=== PATIENT | female | born 1955 | race Caucasian/White ===

== ENCOUNTER → 2018-02-14 17:39 | Outpatient (CLI) | payer OTHER, MEDICAID, SELFPAY ==
--- NOTE | 2018-02-14 17:47 | DI.RAD.S_ITS ---
PROCEDURE: XR HIP W PEL IF DONE RT 2V INDICATIONS: RIGHT HIP PAIN TECHNIQUE: AP pelvis with lateral view(s) of the right hip(s). COMPARISON: [facility], , PELVIS W UNILATERAL HIP LEFT, 06/19/2015, 17:16. FINDINGS: Bones: No fractures or dislocations. Pelvic ring appears intact. No suspicious bony lesions. There is mild bilateral degenerative hip joint space narrowing with minimal subchondral sclerosis. No erosions. Soft tissues: The visualized bowel gas pattern is normal. No suspicious soft tissue calcifications. Trace right calcific tendinitis is noted. IMPRESSION: Stable appearance of mild bilateral hip joint space narrowing suggestive of osteoarthritis. Dictated by: Lillian Hoff M.D. on 02/15/2018 at 16:05 Approved by: Lillian Hoff M.D. on 02/15/2018 at 16:06
== END ==
PROVIDERS: Visit Provider Physician Assistant Medical
DX: M25.551 Pain in right hip (principal); G89.21 Chronic pain due to trauma; Z87.828 Personal history of other (healed) physical injury and trauma
CPT/HCPCS: 73502

== ENCOUNTER → 2018-04-13 13:54 | Outpatient (CLI) | payer OTHER, MEDICAID, SELFPAY ==
--- NOTE | 2018-04-13 | DI.RAD.S_ITS ---
PROCEDURE: XR FOOT RT MIN 3V INDICATIONS: FOOT PAIN TECHNIQUE: 3 views of the foot were acquired. COMPARISON: None. FINDINGS: Bones: No fractures or dislocations. No suspicious bony lesions. There is mild hallux valgus and suggestion of hemorrhage with deformity involving second and third toes. Mild first MTP joint and first through fifth interphalangeal joint osteoarthritic changes also seen. Soft tissues: No tibiotalar joint effusion. Achilles tendon appears normal. IMPRESSION: Mild hallux valgus. Second and third toe hammertoe deformities. Mild forefoot joint osteoarthritis. No fracture or dislocation. Dictated by: Hossein Madden M.D. on 04/13/2018 at 14:37 Approved by: Hossein Madden M.D. on 04/13/2018 at 15:15
== END ==
PROVIDERS: Visit Provider Physician Assistant Medical
DX: M79.671 Pain in right foot (principal); M20.11 Hallux valgus (acquired), right foot; M20.41 Other hammer toe(s) (acquired), right foot; M19.071 Primary osteoarthritis, right ankle and foot
CPT/HCPCS: 73630

== ENCOUNTER → 2019-02-26 17:27 | Outpatient (CLI) | payer SELFPAY ==
[2019-02-26 19:29] LABS: INR 0.9 (0.9-1.3)
[2019-02-26 19:31] LABS: PTT Partial Thromboplastin Tim 34 SECONDS (26.4-36.2)
== END ==
PROVIDERS: PCP Family Medicine; Visit Provider Family Medicine
DX: R23.8 Other skin changes (principal)
CPT/HCPCS: 36415; 85610; 85730

== ENCOUNTER → 2020-03-25 15:26 | Outpatient (CLI) | payer OTHER, MEDICAID, SELFPAY ==
--- NOTE | 2020-03-25 15:29 | DI.MRI.S_ITS ---
PROCEDURE: MR FOREARM LT WO/W CON INDICATIONS: Mass left wrist and forearm TECHNIQUE: Noncontrast coronal T1 spin echo and STIR, sagittal T1 spin echo with fat saturation and STIR, axial T1 spin echo and T2 fast spin echo with fat saturation. After the administration of contrast, axial/sagittal/coronal T1 spin echo with fat saturation through the left forearm . COMPARISON: Outside Film, CR, XR WRIST 3+ VIEWS LEFT, 10/01/2019, 13:45. FINDINGS: Image quality: Excellent. Bones: The visualized bone marrow demonstrates normal signal on all sequences. The overlying cortex appears intact. No abnormal intraosseous enhancement. Soft tissues: 2 fiducial markers are seen, 1 placed on the skin surface of the mid forearm along the radial aspect, 2nd marker is noted along the ulnar aspect of the wrist. In both of these locations, no definite soft tissue mass is seen. There is predominant subcutaneous fat signal intensity without definite or masslike enhancement. Measurements are precluded by the absence of any visible margins. At the mid forearm location, there is mild infiltrative T2 hyperintense signal change although unclear if this is related to field magnetic heterogeneity and failure of fat suppression artifact. At the wrist location, there is prominent enhancement along the ulnar aspect of the carpus which may be synovial and related to inflammatory arthropathy. Dedicated wrist MRI with and without contrast could be performed as clinically necessary. Of note, the comparison radiograph there is blunted appearance of the ulnar styloid. IMPRESSION: In both locations at the mid forearm and wrist, there is predominantly fat signal intensity underlying the fiducial markers which suggests (unencapsulated) lipoma. Recommend clinical correlation and management Prominent enhancement seen along the ulnar aspect of the carpus in the region of the ulnar styloid. This could reflect synovitis related to inflammatory/erosive arthropathy. Please correlate clinically and with laboratory data Dictated by: Charlie Valdez M.D. on 03/25/2020 at 16:52 Approved by: Charlie Valdez M.D. on 03/25/2020 at 17:01
== END ==
PROVIDERS: PCP Physician Assistant; Referring Provider Orthopaedic Surgery; Visit Provider Orthopaedic Surgery
DX: R22.32 Localized swelling, mass and lump, left upper limb (principal)
CPT/HCPCS: 73220; A9579

== ENCOUNTER 2020-08-31 07:28 | Emergency (ER) | payer OTHER, MEDICAID, SELFPAY ==
[2020-08-31] VITALS (7 sets, daily range): BP systolic 98–135; BP diastolic 52–62; PULSE 58–89; RESP 22; TEMP 36.7; O2SAT 93–97; BMI 31.2
--- NOTE | 2020-08-31 07:31 | ED_ITS ---
HPI - General Adult General Chief complaint: Back Pain/Injury Stated complaint: Back spasms Time Seen by Provider: 08/31/20 07:31 Source: patient Mode of arrival: EMS Limitations: no limitations History of Present Illness HPI narrative: Patient is a 65-year-old female who has had lower back pain in the past presents today with pain in her right upper back. She states that it woke her up from sleep approximately 4 hours prior to arrival here in the ER. She does not remember anything that would cause her symptoms to have occurred. She states that it feels like a deep discomfort in her right upper back. It is worse when she takes a deep breath and moves. She is not having any chest discomfort. No fevers. No sick exposures. She stated that she tried some cream over the area this morning without any improvement. She states she also tried some stretching without any improvement. In route here to the you her per EMS she received 2 mg of Zofran and 6 mg of morphine without much improvement. Related Data Previous Rx's Medication Instructions Recorded cyclobenzaprine 10 mg PO TID PRN #14 tab 08/31/20 Allergies Allergy/AdvReac Type Severity Reaction Status Date / Time latex [LATEX] Allergy Unknown Verified 08/31/20 07:39 povidone-iodine Allergy Unknown Verified 08/31/20 07:39 [From BETADINE] soap [From BETADINE] Allergy Unknown Verified 08/31/20 07:39 ENVIRONMENTAL Allergy Intermediate Uncoded 08/31/20 07:39 BEE Allergy Unknown PER Uncoded 08/31/20 07:39 TESTING, HAS EPI PEN SULFA Allergy Unknown RASH Uncoded 08/31/20 07:39 Review of Systems Constitutional Constitutional: Denies fever(s) and Denies headache(s) ENT Ears, Nose, Mouth, and Throat: Denies headache(s) Cardiovascular Cardiovascular: Denies chest pain Respiratory Respiratory: Reports pain on inspiration Gastrointestinal Gastrointestinal: Denies abdominal pain, Denies nausea and Denies vomiting Genitourinary Genitourinary: Denies dysuria Genitourinary: Denies dysuria Musculoskeletal Musculoskeletal: Reports back pain, Reports muscle cramps and Reports myalgias Integumentary/Breasts Skin/Breast: Denies lesions and Denies rash Neurologic Neurologic: Denies behavioral changes and Denies headache(s) Psychiatric Psychiatric: Denies behavioral changes Hematologic/Lymphatic On Anticoagulants: No Allergic/Immunologic Allergic/Immunologic: Denies urticaria Patient History Medical History Abrasion, right knee, initial encounter Bug bite Contusion of hip or thigh, left Right wrist sprain Social History lives independently: Yes Smoking Status: Never smoker Exam Initial Vital Signs Initial Vital Signs: Vital Signs Temperature 98.1 F 08/31/20 07:33 Pulse Rate 89 08/31/20 07:33 Respiratory Rate 22 08/31/20 07:33 Blood Pressure 135/62 08/31/20 07:33 Pulse Oximetry 97 08/31/20 07:33 Const General: cooperative Limitations: mental status not altered HENMT Head: normal to inspection and normocephalic Resp Effort & Inspection: normal respiratory effort Auscultation: clear to auscultation bilaterally Cardio Rate: regular rate Rhythm: regular rhythm Back/Spine/Pelvis Other: Patient reports that the tenderness to palpation is over the right-sided medial border of the scapula. All the rhomboids. Does improve as you go lateral over the scapula. Also has discomfort up back to her neck. Skin Other: No visible rashes Neuro General: patient alert, patient awake and patient oriented x3 Cognition: normal cognition Speech: speech normal Extrem General: capillary refill normal Psych Appearance: grossly normal and well kempt Course Orders Ordered: ED Orders 08/31/20 07:31 XR chest 1V Stat EKG-12 Lead Stat Discontinued Medications Diazepam (Diazepam 5 Mg Tablet) 5 mg PO NOW ONE Stop: 08/31/20 07:32 Last Admin: 08/31/20 07:39 Dose: 5 mg Documented by: ESTELITA Ketorolac Tromethamine (Ketorolac 60 Mg/2 Ml Vial) 30 mg IV NOW ONE Stop: 08/31/20 07:32 Last Admin: 08/31/20 07:38 Dose: 30 mg Documented by: ESTELITA Vital Signs Vital signs: Vital Signs - 8 hr 08/31/20 07:33 Temperature 98.1 F Pulse Rate 89 Respiratory Rate 22 Blood Pressure 135/62 Pulse Oximetry 97 Medical Decision Making Imaging Data Chest x-ray: Radiologist's Impression: [address] [id number] ReportSigned Patient: Patricia Cho [facility]#: [id number]: 6Acct:[id number]/Sex: 65 / FDate of Service: 08/31/20Loc: EDAccession Number: [id number] Procedure: XR chest 1V Ordering Provider: Brett Oh D.O. PROCEDURE: XR CHEST 1V INDICATIONS: Right sided back pain with breath TECHNIQUE: One view of the chest was acquired. COMPARISON: None. FINDINGS: Surgical changes and devices: None. Lungs and pleura: Mild diffuse interstitial prominence. Left basilar opacities may be infiltrate or atelectasis. No pleural effusions or pneumothorax. Mediastinum: Mediastinal contours appear normal. Heart size is normal. Bones and chest wall: No suspicious bony lesions. Overlying soft tissues appear unremarkable. IMPRESSION: Left basilar infiltrate or atelectasis. Dictated by: Otoniel Sheriff M.D. on 08/31/2020 at 8:41 Approved by: Otoniel Sheriff M.D. on 08/31/2020 at 8:42 ECG Data Attestation: I personally reviewed and interpreted this ECG as follows: Prior ECG tracings: not available for review Interpretation: Sinus rhythm Ventricular rate of 75 Normal axis Normal QRS Normal QTC ST T wave changes MDM Narrative Medical decision making narrative: Patient's x-ray and EKG are unremarkable. I do feel that this is clearly musculoskeletal in her right upper back. She has not had any trauma. There is no signs of infections. I suspect this is a muscle spasm. I discussed all this with the patient. Will send home with medications. She was given return precautions and follow-up instructions. She expressed understanding and agreement. Discharge Plan Departure Patient Disposition: Home Clinical Impression: Muscle spasm Instructions: DI for Muscle Spasm Activity Restrictions/Additional Instructions: I recommend that you start taking any anti-inflammatories such as Motrin/ibuprofen or Naprosyn. You could also use heat/ice/massage and light stretching and I recommend that you do all of these. A prescription for muscle relaxers was electronically transmitted to the pharmacy of your choice. Contact your primary provider for follow-up. Your symptoms should improve within the next couple days Prescriptions: New cyclobenzaprine 10 mg tablet 10 mg PO TID PRN (Reason: muscle spasm) Qty: 14 RF: 0 Referrals: Khloe Zelaya PA-C [Primary Care Provider] -
[2020-08-31] MEDS: KETOROLAC 60 MG/2 ML VIAL 30 MG IV (07:38)
[2020-08-31] MEDS: diazePAM 5 MG TABLET PO (07:39)
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
[2020-08-31 10:26] LABS: BUN Creatinine Ratio 21.3 (6-22); Blood Urea Nitrogen 17 mg/dL (7-17); Calcium 9.3 mg/dL (8.4-10.2); Carbon Dioxide 29 mmol/L (22-32); Chloride 105 mmol/L (98-107); Estimated Glomerular Filt Rate > 60.0 mL/min (>60); Glucose 111 mg/dL (80-110); HEMOLYSIS < 15 (0-50); Potassium 4.4 mmol/L (3.4-5.1); Sodium 136 mmol/L (137-145)
--- NOTE | 2020-08-31 10:41 | PC.NURSE ---
RN to room to discharge. Pt states she wants her potassium levels checked, as she was having leg cramps earlier. Family requesting something to stabilize her neck for transport home. Adriano informed, new orders. Soft collar placed.
== END 2020-08-31 11:03 | disposition home or self-care (01) ==
PROVIDERS: Emergency Provider Emergency Medicine; PCP Physician Assistant
DX: M62.830 Muscle spasm of back (principal); R07.9 Chest pain, unspecified
CPT/HCPCS: 36415; 71045; 80048; 93005; 96374; 99281; 99284; J1885

== ENCOUNTER 2021-03-09 19:58 | Emergency (ER) | payer OTHER, MEDICAID, SELFPAY ==
[2021-03-09] VITALS (8 sets, daily range): BP systolic 123–138; BP diastolic 68–85; PULSE 67–107; RESP 16–20; TEMP 36.7; O2SAT 95–99; BMI 31.2
[2021-03-09] MEDS: FAMOTIDINE 20 MG/2 ML VIAL IV (20:20)
[2021-03-09] MEDS: methylPREDNISolone 125 MG/2 ML VIAL IV (20:21)
[2021-03-09] MEDS: diphenhydrAMINE 50 MG/ML VIAL 25 MG IV (20:21)
--- NOTE | 2021-03-10 03:59 | ED_ITS ---
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 She does have an EpiPen at home but states it has and did not use it. She presented immediately here and complained of itching and redness the skin of her right hip but started feeling some scratching sensation in her throat. She denies any trouble breathing or swallowing. She denies any fever or chills. She denies any widespread rash. Related Data Previous Rx's Medication Instructions Recorded cyclobenzaprine 10 mg tablet 10 mg PO TID PRN #14 tab 08/31/20 epinephrine 0.3 mg/0.3 mL 0.3 mg IM Q5-15M PRN #2 each 03/09/21 injection, auto-injector (EpiPen 2-Matt) prednisone 20 mg tablet 20 mg PO DAILY #5 tab 03/09/21 Allergies Allergy/AdvReac Type Severity Reaction Status Date / Time latex [LATEX] Allergy Unknown Verified 03/09/21 20:02 povidone-iodine Allergy Unknown Verified 03/09/21 20:02 [From BETADINE] soap [From BETADINE] Allergy Unknown Verified 03/09/21 20:02 ENVIRONMENTAL Allergy Intermediate Uncoded 03/09/21 20:02 BEE Allergy Unknown PER Uncoded 03/09/21 20:02 TESTING, HAS EPI PEN SULFA Allergy Unknown RASH Uncoded 03/09/21 20:02 Review of Systems Review of Systems Narrative: GENERAL: Denies chills, fatigue, malaise, fever, sweats. HEENT: See HPI RESPIRATORY: Denies dyspnea, cough, wheezing, hemoptysis, sputum. CARDIOVASCULAR: Denies chest pain, palpitations, orthopnea, edema, GASTROINTESTINAL: Denies nausea, vomiting, abdominal pain, diarrhea, constipation, melena. : Denies dysuria, frequency, incontinence, hematuria, urinary retention. MUSCULOSKELETAL: denies weakness, joint pain, or bony pain SKIN: See HPI NEUROLOGIC: Denies weakness, headache, numbness, change in speech, confusion, seizures, incoordination. PSYCHIATRIC: No concerning psychosocial issues. 12 point review of systems is negative except for those stated above Patient History Medical History Abrasion, right knee, initial encounter Bug bite Contusion of hip or thigh, left Right wrist sprain Social History lives independently: Yes Smoking Status: Never smoker Smoking Status: Never smoker alcohol intake frequency: 0-2 drinks per day Substance Use Type: does not use Exam Narrative Exam Narrative: GENERAL: [65] year old patient appears stated age. Well- developed patient, in mild distress. HEAD: Atraumatic. Normocephalic. EYES: Pupils equal round and reactive. Extraocular motions intact. No scleral icterus. No injection or drainage. ENT: Nose without bleeding, purulent drainage. Throat without erythema, tonsillar hypertrophy or exudate. Airway patent. NECK: Trachea midline. Non tender CARDIOVASCULAR: Regular rate and rhythm without murmurs, gallops, or rubs. RESPIRATORY: Clear to auscultation. Breath sounds equal bilaterally. No wheezes, rales, or rhonchi. GASTROINTESTINAL: Abdomen soft, non-tender, nondistended. EXTREMITIES: No edema or joint tenderness. BACK: Nontender without deformity or crepitance. No flank tenderness. NEURO: AOx3. SKIN: Minimal erythema on right hip No rash or erythema of visible areas Initial Vital Signs Initial Vital Signs: Vital Signs Temperature 98.0 F 03/09/21 20:02 Pulse Rate 107 H 03/09/21 20:02 Respiratory Rate 20 03/09/21 20:02 Blood Pressure 137/68 03/09/21 20:02 Pulse Oximetry 95 03/09/21 20:02 Course Orders Ordered: Discontinued Medications Diphenhydramine HCl (Diphenhydramine 50 Mg/Ml Vial) 25 mg IV NOW ONE Stop: 03/09/21 20:17 Last Admin: 03/09/21 20:21 Dose: 25 mg Documented by: FELIPA Famotidine (Famotidine 20 Mg/2 Ml Vial) 20 mg IV NOW ONE Stop: 03/09/21 20:17 Last Admin: 03/09/21 20:20 Dose: 20 mg Documented by: FELIPA Methylprednisolone (Methylprednisolone 125 Mg/2 Ml Vial) 125 mg IV NOW ONE Stop: 03/09/21 20:17 Last Admin: 03/09/21 20:21 Dose: 125 mg Documented by: FELIPA Reevaluation(s) Reevaluation #1: Patient feeling quite well after above-stated therapies, observed for nearly 3 hours Vital Signs Vital signs: Vital Signs - 8 hr 03/09/21 21:00 03/09/21 21:30 03/09/21 22:00 Pulse Rate 95 H 92 H 83 Respiratory Rate Blood Pressure Pulse Oximetry 95 95 95 03/09/21 22:11 03/09/21 23:33 Pulse Rate 81 67 Respiratory Rate 16 Blood Pressure 137/83 123/76 Pulse Oximetry 95 99 MDM - Allergic Reaction MDM Narrative Medical decision making narrative: Patient with bee sting improves significantly with above-stated therapies. She demonstrates no signs of respiratory distress. Vital signs normalized. Patient given return precautions and questions answered to her apparent satisfaction Discharge Plan Departure Patient Disposition: Home Clinical Impression: Allergic reaction Instructions: DI for Anaphylaxis Activity Restrictions/Additional Instructions: *You have been diagnosed with [allergic reaction to bee sting] *What to do: *Please continue to take your regular medications as directed. [ x] New medication prescriptions sent to your pharmacy: [ ] [ ] New medication written as a paper prescription [ ] No new medications given *Please follow up with your primary care provider in 2-3 days, call for an appointment. Let them know you were seen in the Emergency Department and that we ask that you be seen in follow up. We will electronically transmit a record of today's note if your PCP is in our system *If you do not have a primary care provider please contact the [facility] Resource line at [phone]. They will ask some questions about your medical history and help get you set up with a doctor in the community. *Return to Emergency Department if you should have any new, worsening or concerning symptoms, such as [fever greater than 101 F, shaking chills, worsening pain, persistent vomiting or other bothersome symptoms] Prescriptions: New prednisone 20 mg tablet 20 mg PO DAILY Qty: 5 RF: 0 epinephrine [EpiPen 2-Matt] 0.3 mg/0.3 mL auto-injector 0.3 mg IM Q5-15M PRN (Reason: anaphylaxis) Qty: 2 RF: 0 No Action cyclobenzaprine 10 mg tablet 10 mg PO TID PRN (Reason: muscle spasm) Qty: 14 RF: 0 Referrals: Khloe Zelaya PA-C [Primary Care Provider] -
== END 2021-03-09 23:35 | disposition home or self-care (01) ==
PROVIDERS: Emergency Provider Emergency Medicine; PCP Physician Assistant
DX: T63.441A Toxic effect of venom of bees, accidental (unintentional), initial encounter (principal)
CPT/HCPCS: 36415; 96374; 96375; 99284; J1200; J2930

== ENCOUNTER 2022-04-08 16:24 | Emergency (ER) | payer MEDICARE, OTHER, MEDICAID, SELFPAY ==
[2022-04-08 16:42] VITALS: BP 133/62; PULSE 65; RESP 18; TEMP 36.6; O2SAT 97; BMI 31.2
[2022-04-08 20:18] VITALS: BP 167/72; PULSE 70; RESP 18; TEMP 36.6; O2SAT 97
--- NOTE | 2022-04-08 20:56 | ED_ITS ---
HPI - General Adult General Chief complaint: Dizziness Stated complaint: dizzy spells,headaches, pain top of head, throbbin Time Seen by Provider: 04/08/22 18:01 Source: patient Mode of arrival: Ambulatory Limitations: no limitations History of Present Illness HPI narrative: Patient is a 66-year-old female who is here for evaluation of multiple symptoms to include headaches, pain in the top of her head, and dizzy spells. She states she had similar symptoms approximately 1 month ago. [facility] [place] [facility] Was told that she had vertigo. Does have referral to see ear nose and throat but has not done so. Not followed up with the primary doctor. States that earlier today she was sitting when she had a return of the room spinning sensation. She denies any chest pain. No shortness of breath. No sore throat. No ringing in her ears. Related Data Previous Rx's Medication Instructions Recorded cyclobenzaprine 10 mg tablet 10 mg PO TID PRN muscle spasm #14 08/31/20 tabs epinephrine 0.3 mg/0.3 mL 0.3 mg (0.3 mL) IM Q5-15M PRN 03/09/21 injection, auto-injector (EpiPen anaphylaxis #2 ea 2-Matt) prednisone 20 mg tablet 20 mg PO DAILY #5 tabs 03/09/21 meclizine 25 mg tablet 25 mg PO BID PRN dizziness #14 tabs 04/08/22 Allergies Allergy/AdvReac Type Severity Reaction Status Date / Time latex [LATEX] Allergy Unknown Verified 03/09/21 20:02 povidone-iodine Allergy Unknown Verified 03/09/21 20:02 [From BETADINE] soap [From BETADINE] Allergy Unknown Verified 03/09/21 20:02 ENVIRONMENTAL Allergy Intermediate Uncoded 03/09/21 20:02 BEE Allergy Unknown PER Uncoded 03/09/21 20:02 TESTING, HAS EPI PEN SULFA Allergy Unknown RASH Uncoded 03/09/21 20:02 Review of Systems Constitutional Constitutional: Reports headache(s) Eyes Eyes: Denies blurry vision ENT Ears, Nose, Mouth, and Throat: Reports system reviewed and no additional complaints, except as documented and Reports headache(s) Cardiovascular Cardiovascular: Reports system reviewed and no additional complaints, except as documented Respiratory Respiratory: Reports system reviewed and no additional complaints, except as documented Integumentary/Breasts Skin/Breast: Reports system reviewed and no additional complaints, except as documented Neurologic Neurologic: Reports headache(s) Hematologic/Lymphatic On Anticoagulants: No Patient History Medical History Abrasion, right knee, initial encounter Bug bite Contusion of hip or thigh, left Right wrist sprain Social History lives independently: Yes Smoking Status: Former smoker Smoking Status: Former smoker alcohol intake frequency: a few times a week Alcohol type: wine Substance Use Type: does not use Exam Initial Vital Signs Initial Vital Signs: Vital Signs Temperature 97.8 F 04/08/22 16:42 Pulse Rate 65 04/08/22 16:42 Respiratory Rate 18 04/08/22 16:42 Blood Pressure 133/62 04/08/22 16:42 Pulse Oximetry 97 04/08/22 16:42 Oxygen Delivery Method 04/08/22 16:42 Const General: cooperative and comfortable HENMT Head: normal to inspection and normocephalic Resp Effort & Inspection: normal respiratory effort Auscultation: clear to auscultation bilaterally Cardio Rate: regular rate Rhythm: regular rhythm Skin General: no rashes or lesions noted Neuro General: patient alert, patient awake, patient oriented x3 and moves all extremities Cognition: normal cognition Speech: speech normal Gait: normal gait Extrem General: normal to inspection Course Orders Ordered: ED Orders 04/08/22 20:40 Complete Blood Count AUTO DIFF Stat Comprehensive Metabolic Panel Stat Magnesium Stat Thyroid Stimulating Hormone Stat Troponin & CK Cardiac Panel Stat 04/08/22 20:56 CT head/brain wo con Stat 04/08/22 21:28 EKG-12 Lead Stat Vital Signs Vital signs: Vital Signs - 8 hr 04/08/22 20:18 04/08/22 23:08 Temperature 97.8 F Pulse Rate 70 68 Respiratory Rate 18 18 Blood Pressure 167/72 H 134/59 L Pulse Oximetry 97 96 Oxygen Delivery Method Room Air Room Air Medical Decision Making Lab Data Lab results reviewed: Yes I reviewed the patient's lab results. Result diagrams: 04/08/22 20:40 04/08/22 20:40 Labs: Lab Results 04/08/22 04/08/22 04/08/22 Range/Units 20:40 20:40 20:40 WBC 8.2 (4.5-11.0) X10^3/uL RBC 4.73 (4.0-5.2) X10^6/uL Hgb 13.9 (12.0-16.0) g/dL Hct 40.8 (36-46) % MCV 86.2 (80-100) fL MCH 29.3 (26-34) PG MCHC 34.0 (30-36) % RDW 13.4 (11.6-14.8) % Plt Count 254 (150-400) X10^3/uL Neut % (Auto) 55.8 (50-75) % Lymph % (Auto) 33.2 (25-40) % [place] % (Auto) 7.3 (3-14) % Eos % (Auto) 2.7 (2-4) % Baso % (Auto) 1.0 (0-2) % Neut # (Auto) 4600 (0456-9016) /uL Lymph # (Auto) 2700 (5464-7240) /uL [place] # (Auto) 600 (0-900) /uL Eos # (Auto) 200 (0-450) /uL Baso # (Auto) 100 (0-100) /uL Sodium 138 (137-145) mmol/L Potassium 4.1 (3.4-5.1) mmol/L Chloride 102 (98-107) mmol/L Carbon Dioxide 28 (22-32) mmol/L BUN 13 (7-17) mg/dL Creatinine 0.96 (0.52-1.04) mg/dL Estimated GFR > 60 (>60) mL/min BUN/Creatinine Ratio 13.5 (6-22) Glucose 92 (80-110) mg/dL Calcium 10.4 H (8.4-10.2) mg/dL Magnesium 2.1 (1.6-2.3) mg/dL Total Bilirubin 0.4 (0.2-1.3) mg/dL AST 38 H (14-36) IU/L ALT 48 H (<35) IU/L Alkaline Phosphatase 70 (38-126) U/L Total Creatine Kinase 47 (30-135) U/L CK-MB (CK-2) TNP CK-MB (CK-2) Rel Index TNP Troponin I < 0.012 (0.01-0.034) ng/mL Total Protein 7.7 (6.3-8.2) g/dL Albumin 4.1 (3.5-5.0) g/dL Globulin 3.6 (1.7-4.1) g/dL Albumin/Globulin Ratio 1.1 (1.0-2.8) TSH 4.19 (0.47-4.68) uIU/mL Imaging Data CT scan - head: Radiologist's Impression: Sinus rhythm Ventricular rate is 68 Normal axis Normal QRS Normal QTC No ST T wave changes MDM Narrative Medical decision making narrative: Unable to reproduce the symptoms here in the ER. Patient ambulated with her walker. Head CT and labs are unremarkable. I was able to review the notes from the outside facility when she was seen a month ago. I do suspect that this is a peripheral vertigo. Low suspicion for stroke. Informed patient that she should follow-up with the ENT doctors for which she has a referral. Will send home with a prescription for meclizine. She was given return precautions. She expressed understanding and agreement. Discharge Plan Departure Patient Disposition: Home Clinical Impression: Vertigo Instructions: DI for Vertigo Activity Restrictions/Additional Instructions: A prescription for medicine called meclizine was sent to [facility]. Please pick it up and start taking it as directed. It is important that you follow-up with the ear nose and throat doctors. Also contact your primary doctor for a follow- up. Return to the emergency department for any new or worsening symptoms. Prescriptions: New meclizine 25 mg tablet 25 mg PO BID PRN (Reason: dizziness) Qty: 14 0RF No Action cyclobenzaprine 10 mg tablet 10 mg PO TID PRN (Reason: muscle spasm) Qty: 14 0RF prednisone 20 mg tablet 20 mg PO DAILY Qty: 5 0RF Rx Instructions: administer with food or milk epinephrine [EpiPen 2-Matt] 0.3 mg/0.3 mL auto-injector 0.3 mg IM Q5-15M PRN (Reason: anaphylaxis) Qty: 2 0RF Rx Instructions: do not exceed 3 doses per episode Referrals: Geraldine Glass ARNP [Primary Care Provider] - Visit Report Forms: Patient Portal/API
--- NOTE | 2022-04-08 20:56 | DI.CT.S_ITS ---
PROCEDURE: CT HEAD/BRAIN WO CON INDICATIONS: vertigo with headache TECHNIQUE: Noncontrast 4.5 mm thick angled axial sections acquired from the foramen magnum to the vertex, with coronal and sagittal reformats. For radiation dose reduction, the following was used: automated exposure control, adjustment of mA and/or kV according to patient size. COMPARISON: None. FINDINGS: Image quality: Excellent. CSF spaces: Basal cisterns are patent. No extra-axial fluid collections. Ventricles are normal in size and shape. Brain: No intracranial hemorrhage, mass, or mass effect. Perez-white matter interface appears preserved. Skull and face: Calvarium and visualized facial bones are intact, without suspicious lesions. Sinuses: Visualized sinuses and mastoids are clear. IMPRESSION: 1. No acute intracranial abnormality. Dictated by: Chilango Kennedy M.D. on 04/08/2022 at 21:45 Approved by: Chilango Kennedy M.D. on 04/08/2022 at 21:48
[2022-04-08 20:58] LABS: Add Manual Diff / Slide Review NO; Basophils Absolute Auto 100 /uL (0-100); Eosinophils Absolute Auto 200 /uL (0-450); Eosinophils Percent Auto 2.7 % (2-4); Hematocrit 40.8 % (36-46); Hemoglobin 13.9 g/dL (12.0-16.0); Lymphocytes Absolute Auto 2700 /uL (1100-4500); Lymphocytes Percent Auto 33.2 % (25-40); Mean Corpuscular Hemoglobin 29.3 PG (26-34); Mean Corpuscular Volume 86.2 fL (80-100); Monocytes Absolute Auto 600 /uL (0-900); Monocytes Percent Auto 7.3 % (3-14); Neutrophils Absolute Auto 4600 /uL (1500-7000); Neutrophils Percent Auto 55.8 % (50-75); Platelet Count 254 X10^3/uL (150-400); Red Blood Cell Count 4.73 X10^6/uL (4.0-5.2); Red Cell Distribution Width 13.4 % (11.6-14.8); White Blood Cell Count 8.2 X10^3/uL (4.5-11.0)
[2022-04-08 21:09] LABS: Alanine Aminotransferase 48 IU/L (<35); Albumin 4.1 g/dL (3.5-5.0); Albumin Globulin Ratio 1.1 (1.0-2.8); Alkaline Phosphatase 70 U/L (38-126); Aspartate Aminotransferase 38 IU/L (14-36); BUN Creatinine Ratio 13.5 (6-22); Bilirubin Total 0.4 mg/dL (0.2-1.3); Blood Urea Nitrogen 13 mg/dL (7-17); Calcium 10.4 mg/dL (8.4-10.2); Carbon Dioxide 28 mmol/L (22-32); Chloride 102 mmol/L (98-107); Creatine Kinase 47 U/L (30-135); Estimated Glomerular Filt Rate > 60 mL/min (>60); Globulin 3.6 g/dL (1.7-4.1); Glucose 92 mg/dL (80-110); HEMOLYSIS < 15 (0-50); Magnesium 2.1 mg/dL (1.6-2.3); Potassium 4.1 mmol/L (3.4-5.1); Sodium 138 mmol/L (137-145); Total Protein 7.7 g/dL (6.3-8.2)
[2022-04-08 21:20] LABS: Troponin I < 0.012 ng/mL (0.01-0.034)
[2022-04-08 22:01] LABS: Thyroid Stimulating Hormone 4.19 uIU/mL (0.47-4.68)
[2022-04-08 23:08] VITALS: BP 134/59; PULSE 68; RESP 18; O2SAT 96
== END 2022-04-08 23:09 | disposition home or self-care (01) ==
PROVIDERS: Emergency Provider Emergency Medicine; PCP Nurse Practitioner Family
DX: R42 Dizziness and giddiness (principal)
CPT/HCPCS: 70450; 80053; 82550; 83735; 84443; 84484; 85025; 93005; 93010; 99283; 99284

== ENCOUNTER 2022-10-19 17:25 | Emergency (ER) | payer MEDICARE, MEDICAID, SELFPAY ==
[2022-10-19 17:34] VITALS: O2SAT 100
[2022-10-19 17:35] VITALS: BP 178/83; PULSE 89; O2SAT 95
[2022-10-19 17:40] VITALS: BP 178/83; PULSE 87; RESP 18; TEMP 36.9; O2SAT 97; BMI 31.8
--- NOTE | 2022-10-19 17:45 | DI.CT.S_ITS ---
PROCEDURE: CT HEAD/BRAIN WO CON INDICATIONS: dizziness/flashing lights in vision TECHNIQUE: Noncontrast 4.5 mm thick angled axial sections acquired from the foramen magnum to the vertex, with coronal and sagittal reformats. For radiation dose reduction, the following was used: automated exposure control, adjustment of mA and/or kV according to patient size. COMPARISON: [facility], CT, CT HEAD/BRAIN WO CON, 04/08/2022, 21:09. FINDINGS: Image quality: Excellent. CSF spaces: Basal cisterns are patent. No extra-axial fluid collections. Ventricles are normal in size and shape. Brain: No midline shift. No intracranial masses or hemorrhage. Perez-white matter interface is normal. Skull and face: Calvarium and visualized facial bones are intact, without suspicious lesions. Sinuses: Visualized sinuses and mastoids are clear. IMPRESSION: 1. No CT evidence of acute intracranial process. Dictated by: Venus Alcocer M.D. on 10/19/2022 at 18:16 Approved by: Venus Alcocer M.D. on 10/19/2022 at 18:17
--- NOTE | 2022-10-19 17:52 | DI.CT.S_ITS ---
PROCEDURE: CT SINUS SCREEN WO CON INDICATIONS: Eval for sinus disease TECHNIQUE: Noncontrast 3.0 mm axial images acquired from the frontal sinuses to the mid-sella, with coronal and sagittal reformats. For radiation dose reduction, the following was used: automated exposure control, adjustment of mA and/or kV according to patient size. COMPARISON: None. FINDINGS: Image quality: Excellent. Maxillary Sinuses: Deformity of remote left anterior maxillary sinus wall fracture. There is indentation of the wall. No suspicious mucosal thickening. Tiny foreign body is present, likely surgical. Right maxillary sinus is normal. Ethmoid Air Cells: No bony remodeling or destruction. Sinuses are clear. Sphenoid Sinuses: No bony remodeling or destruction. Sinuses are clear. Frontal Sinuses: Frontal sinuses are hypoplastic/non aerated. Ostiomeatal Complexes: Ostiomeatal complexes are patent. No Starla cells. Miscellaneous: The left maxillary teeth are missing and there is prosthesis in place. The bony orbits and soft tissue contents are normal. IMPRESSION: 1. No evidence of acute or chronic appearing sinus disease. 2. Evidence of prior right maxillary and maxillary sinus trauma. Dictated by: Venus Alcocer M.D. on 10/19/2022 at 18:33 Approved by: Venus Alcocer M.D. on 10/19/2022 at 18:36
[2022-10-19 18:02] LABS: Add Manual Diff / Slide Review NO; Basophils Absolute Auto 0 /uL (0-100); Basophils Percent Auto 0.5 % (0-2); Eosinophils Absolute Auto 100 /uL (0-450); Eosinophils Percent Auto 1.7 % (2-4); Hemoglobin 13.6 g/dL (12.0-16.0); Lymphocytes Absolute Auto 2700 /uL (1100-4500); Lymphocytes Percent Auto 32.6 % (25-40); Mean Corpuscular HGB Conc 34.1 % (30-36); Monocytes Absolute Auto 600 /uL (0-900); Monocytes Percent Auto 6.8 % (3-14); Neutrophils Absolute Auto 4800 /uL (1500-7000); Neutrophils Percent Auto 58.4 % (50-75); Platelet Count 265 X10^3/uL (150-400); Red Cell Distribution Width 13.6 % (11.6-14.8); White Blood Cell Count 8.2 X10^3/uL (4.5-11.0)
[2022-10-19 18:05] VITALS: PULSE 74; O2SAT 92
[2022-10-19 18:06] LABS: Prothrombin Time 11.2 SECONDS (10.1-12.7)
[2022-10-19 18:09] LABS: PTT Partial Thromboplastin Tim 33 SECONDS (26-36)
[2022-10-19 18:11] LABS: Alanine Aminotransferase 37 IU/L (<35); Albumin 4.2 g/dL (3.5-5.0); Albumin Globulin Ratio 1.2 (1.0-2.8); Alkaline Phosphatase 72 U/L (38-126); Aspartate Aminotransferase 38 IU/L (14-36); BUN Creatinine Ratio 8.9 (6-22); Bilirubin Total 0.3 mg/dL (0.2-1.3); Blood Urea Nitrogen 8 mg/dL (7-17); Calcium 9.4 mg/dL (8.4-10.2); Carbon Dioxide 28 mmol/L (22-32); Chloride 103 mmol/L (98-107); Creatine Kinase 70 U/L (30-135); Estimated Glomerular Filt Rate > 60 mL/min (>60); Globulin 3.6 g/dL (1.7-4.1); Glucose 101 mg/dL (80-110); HEMOLYSIS < 15 (0-50); Lipase 64 U/L (23-300); Potassium 3.8 mmol/L (3.4-5.1); Sodium 138 mmol/L (137-145); Total Protein 7.8 g/dL (6.3-8.2)
[2022-10-19 18:15] VITALS: BP 148/64; PULSE 72; O2SAT 97
[2022-10-19 18:23] LABS: Troponin I < 0.012 ng/mL (0.01-0.034)
--- NOTE | 2022-10-19 18:23 | ED_ITS ---
HPI - General Adult General Chief complaint: Dizziness Stated complaint: visual changes, multiple syncopal episodes Time Seen by Provider: 10/19/22 18:05 Source: patient Mode of arrival: Ambulatory History of Present Illness HPI narrative: 67-year-old female former smoker presents with multiple complaints. She states it for the past year or so she has been having episodes of dizziness which in the big picture seemed to episodes where her symptoms increase in at other times they decreased but always present on some level. She has had multiple workups including even an MRI in July without any significant findings. She is had cardiac evaluations without significant findings. She states that more often than not she is dizzy and is without any obvious provocation or palliation. She is had no recent trauma or injury and denies any change in medications or diet. She is been having vision change in her left eye for at least 3 months and is becoming increasingly blurry, she has previously been established with an eye doctor but does not currently have 1. She has an appointment coming up to see an ear nose and throat doctor to see if that may be contributing to her dizziness. The biggest change that prompted a visit today is that for the past week or so she admits to having which she describes as floaters or flashers in what she thinks this her left eye. She denies any significant dizziness today. She is had no trouble finding words or with her speech. She denies any facial droop or weakness. She denies any extremity numbness, tingling or weakness. Related Data Previous Rx's Medication Instructions Recorded cyclobenzaprine 10 mg tablet 10 mg PO TID PRN muscle spasm #14 08/31/20 tabs epinephrine 0.3 mg/0.3 mL 0.3 mg (0.3 mL) IM Q5-15M PRN 03/09/21 injection, auto-injector (EpiPen anaphylaxis #2 ea 2-Matt) prednisone 20 mg tablet 20 mg PO DAILY #5 tabs 03/09/21 meclizine 25 mg tablet 25 mg PO BID PRN dizziness #14 tabs 04/08/22 Allergies Allergy/AdvReac Type Severity Reaction Status Date / Time latex [LATEX] Allergy Unknown Verified 10/19/22 17:40 povidone-iodine Allergy Unknown Verified 10/19/22 17:40 [From BETADINE] soap [From BETADINE] Allergy Unknown Verified 10/19/22 17:40 ENVIRONMENTAL Allergy Intermediate Uncoded 10/19/22 17:40 BEE Allergy Unknown PER Uncoded 10/19/22 17:40 TESTING, HAS EPI PEN SULFA Allergy Unknown RASH Uncoded 10/19/22 17:40 Review of Systems Review of Systems Narrative: GENERAL: Denies chills, fatigue, malaise, fever, sweats. HEENT: Denies sinus pain, ear pain, sore throat, difficulty swallowing, dizziness. RESPIRATORY: Denies dyspnea, cough, wheezing, hemoptysis, sputum. CARDIOVASCULAR: Denies chest pain, palpitations, orthopnea, edema, GASTROINTESTINAL: Denies nausea, vomiting, abdominal pain, diarrhea, constipati on, melena. : Denies dysuria, frequency, incontinence, hematuria, urinary retention. MUSCULOSKELETAL: denies weakness, joint pain, or bony pain SKIN: Denies rash, skin lesions, or other NEUROLOGIC: See HPI PSYCHIATRIC: No concerning psychosocial issues. 12 point review of systems is negative except for those stated above Patient History Medical History Abrasion, right knee, initial encounter Bug bite Contusion of hip or thigh, left Right wrist sprain Social History lives independently: Yes Smoking Status: Former smoker Smoking Status: Former smoker alcohol intake frequency: a few times a week Alcohol type: wine Substance Use Type: does not use Exam Narrative Exam Narrative: GENERAL: [67] year old patient appears stated age. Well-developed patient, in mild distress. GCS 15 HEAD: Atraumatic. Normocephalic. EYES: Pupils equal round and reactive. Extraocular motions intact. No scleral icterus. No injection or drainage. ENT: Nose without bleeding, purulent drainage. Throat without erythema, tonsillar hypertrophy or exudate. Airway patent. NECK: Trachea midline. Non tender CARDIOVASCULAR: Regular rate and rhythm without murmurs, gallops, or rubs. RESPIRATORY: Clear to auscultation. Breath sounds equal bilaterally. No wheezes, rales, or rhonchi. GASTROINTESTINAL: Abdomen soft, non-tender, nondistended. EXTREMITIES: No edema or joint tenderness. BACK: Nontender without deformity or crepitance. No flank tenderness. NEURO: AOx3. SKIN: No rash or erythema of visible areas NIH Stroke Scale 1a. LOC: Patient is alert and keenly responsive (0) 1b. LOC Questions: Patient answers both LOC questions accurately (0) 1c. LOC Commands: Patient performs both tasks correctly (0) 2. Best Gaze: Normal (0) 3. Visual: No visual loss (0) 4. Facial palsy: Normal symmetrical movements (0) 5. Motor arm: No drift (0) 6. Motor leg: No drift (0) 7. Limb ataxia: Absent (0) 8. Sensory: Normal (0) 9. Best language: No aphasia; normal (0) 10. Dysarthria: Normal (0) 11. Extinction and inattention: No abnormality (0) NIHSS: 0 Initial Vital Signs Initial Vital Signs: Vital Signs Pulse Oximetry 100 10/19/22 17:34 Course Orders Ordered: Discontinued Medications Proparacaine HCl (Proparacaine 0.5% Ophth Felicitas) 1 drops EYE-LEFT NOW ONE Stop: 10/19/22 20:13 Last Admin: 10/19/22 20:45 Dose: 1 drop Documented By: CHRISTOPHER Vital Signs Vital signs: Vital Signs - 8 hr 10/19/22 17:40 10/19/22 17:34 10/19/22 17:35 Temperature 98.5 F Pulse Rate 87 Respiratory Rate 18 Blood Pressure 178/83 H 178/83 H Pulse Oximetry 97 100 Oxygen Delivery Method Room Air 10/19/22 17:35 10/19/22 18:05 10/19/22 18:15 Temperature Pulse Rate 89 74 72 Respiratory Rate Blood Pressure Pulse Oximetry 95 92 97 Oxygen Delivery Method 10/19/22 18:15 Temperature Pulse Rate Respiratory Rate Blood Pressure 148/64 H Pulse Oximetry Oxygen Delivery Method Medical Decision Making Lab Data 10/19/22 17:52 10/19/22 17:52 Labs: Lab Results 10/19/22 10/19/22 10/19/22 Range/Units 17:52 17:52 17:52 WBC 8.2 (4.5-11.0) X10^3/uL RBC 4.70 (4.0-5.2) X10^6/uL Hgb 13.6 (12.0-16.0) g/dL Hct 40.0 (36-46) % MCV 85.0 (80-100) fL MCH 29.0 (26-34) PG MCHC 34.1 (30-36) % RDW 13.6 (11.6-14.8) % Plt Count 265 (150-400) X10^3/uL Neut % (Auto) 58.4 (50-75) % Lymph % (Auto) 32.6 (25-40) % [place] % (Auto) 6.8 (3-14) % Eos % (Auto) 1.7 L (2-4) % Baso % (Auto) 0.5 (0-2) % Neut # (Auto) 4800 (2202-9170) /uL Lymph # (Auto) 2700 (3801-1946) /uL [place] # (Auto) 600 (0-900) /uL Eos # (Auto) 100 (0-450) /uL Baso # (Auto) 0 (0-100) /uL PT 11.2 (10.1-12.7) SECONDS INR 1.0 (0.9-1.3) APTT 33 (26-36) SECONDS Sodium 138 (137-145) mmol/L Potassium 3.8 (3.4-5.1) mmol/L Chloride 103 (98-107) mmol/L Carbon Dioxide 28 (22-32) mmol/L BUN 8 (7-17) mg/dL Creatinine 0.90 (0.52-1.04) mg/dL Estimated GFR > 60 (>60) mL/min BUN/Creatinine Ratio 8.9 (6-22) Glucose 101 (80-110) mg/dL Calcium 9.4 (8.4-10.2) mg/dL Magnesium 2.0 (1.6-2.3) mg/dL Total Bilirubin 0.3 (0.2-1.3) mg/dL AST 38 H (14-36) IU/L ALT 37 H (<35) IU/L Alkaline Phosphatase 72 (38-126) U/L Total Creatine Kinase 70 (30-135) U/L CK-MB (CK-2) TNP CK-MB (CK-2) Rel Index TNP Troponin I < 0.012 (0.01-0.034) ng/mL Total Protein 7.8 (6.3-8.2) g/dL Albumin 4.2 (3.5-5.0) g/dL Globulin 3.6 (1.7-4.1) g/dL Albumin/Globulin Ratio 1.2 (1.0-2.8) Lipase 64 (23-300) U/L MDM Narrative Medical decision making narrative: CC: 67-year-old female with multiple symptoms lasting upwards of 1 year including dizziness but most recently floaters in her left eye Complicating co-morbidities: Age Data collected from: Patient chronic dizziness Medical records reviewed: Prior notes reviewed in our EMR Differential considered, but not limited to:, Exam documented above, pertinent findings include: Normal funduscopic, pressure s, no focal neurologic findings, heart rate regular, lungs clear, abdomen soft and nontender Lab Test results independently reviewed as above. Pertinent findings: No significant abnormal findings requiring immediate intervention Independently reviewed EKG as above Imaging studies independently reviewed: No significant abnormal findings Scores Used: NIHSS Discussion: Patient with multiple chronic complaints without much in the way of acute findings other than a change in frequency and severity of floaters in her left eye. No evidence of significant abnormal finding requiring specific or immediate intervention. Disposition: see below, along with detailed discharge instructions that have been reviewed with patient as well as indications for ED re-evaluation and additional outpatient follow up Discharge Plan Departure Patient Disposition: Home Clinical Impression: Floaters in visual field Instructions: DI for Eye Floaters Activity Restrictions/Additional Instructions: *You have been diagnosed with [left eye vision change described is lightening bolt or floaters. As we discussed your history and physical exam today as well as labs, imaging are very reassuring] *What to do: *Please continue to take your regular medications as directed. *Please follow up with Dr. Lane of [facility], please call the office tomorrow morning at 8:30 a.m. and let them know you were seen in the emergency department and we would like you seen in follow-up. I will electronically transmitted a copy of today's note *Return to Emergency Department if you should have any new, worsening or concerning symptoms, such as [fever greater than 101 F, shaking chills, wo rsening pain, persistent vomiting or other bothersome symptoms] Prescriptions: No Action cyclobenzaprine 10 mg tablet 10 mg PO TID PRN (Reason: muscle spasm) Qty: 14 0RF prednisone 20 mg tablet 20 mg PO DAILY Qty: 5 0RF Rx Instructions: administer with food or milk epinephrine [EpiPen 2-Matt] 0.3 mg/0.3 mL auto-injector 0.3 mg IM Q5-15M PRN (Reason: anaphylaxis) Qty: 2 0RF Rx Instructions: do not exceed 3 doses per episode meclizine 25 mg tablet 25 mg PO BID PRN (Reason: dizziness) Qty: 14 0RF Referrals: Aman Lane MD [Physician] - Geraldine Glass ARNP [Primary Care Provider] - Stand Alone Forms: Patient Portal/API
[2022-10-19] MEDS: PROPARACAINE 0.5% OPHTH SOL 1 DROPS EYE-LEFT (20:45)
[2022-10-19 21:25] VITALS: BP 133/61; PULSE 71; O2SAT 96
== END 2022-10-19 21:27 | disposition home or self-care (01) ==
PROVIDERS: Emergency Medicine; Emergency Provider Emergency Medicine; PCP Nurse Practitioner Family
DX: H43.392 Other vitreous opacities, left eye (principal); R07.9 Chest pain, unspecified
CPT/HCPCS: 36415; 70450; 70486; 80053; 82550; 83690; 83735; 84484; 85025; 85610; 85730; 93005; 99284

== ENCOUNTER → 2023-11-20 09:35 | Outpatient (CLI) | payer MEDICARE, MEDICAID, SELFPAY ==
--- NOTE | 2023-11-20 09:36 | DI.CT.S_ITS ---
PROCEDURE: CT ABDOMEN W CON INDICATIONS: HIATAL HERNIA TECHNIQUE: After the administration of intravenous contrast, 5 mm thick sections acquired from the diaphragms to the iliac crests. 5 mm thick coronal and sagittal reformats were acquired. For radiation dose reduction, the following was used: automated exposure control, adjustment of mA and/or kV according to patient size. COMPARISON: None. FINDINGS: Image quality: Diagnostic. Lower Chest: Possible tiny hiatal hernia. ABDOMEN: Liver: No solid mass. Multiple small benign cysts. Gallbladder: Absent. Biliary ducts: No biliary dilation. Pancreas: No ductal dilation. Spleen: Size is within normal limits. Adrenal Glands: No adrenal nodules. Kidneys and Ureters: No hydronephrosis. No solid mass. No complex renal cystic lesion which requires follow up. Stomach and Bowel: Normal colonic caliber, without significant wall thickening. Peritoneum: No abnormal intraperitoneal fluid. No free air. Ventral Wall: Tiny fat containing umbilical hernia. Skin marker at the midline anterior to the xiphoid process. No hernia identified. No fluid collection. No mass. Abdominal Nodes: No retroperitoneal or mesenteric adenopathy by size criteria. Vessels: Aorta and inferior vena cava are normal in size. Bones: No aggressive osseous abnormality. IMPRESSION: 1. No hernia at the midline upper abdomen at the site of skin marker. 2. Tiny fat containing umbilical hernia. 3. Small hiatal hernia. 4. No mass or adenopathy. Dictated by: Orestes Shannon M.D. on 11/20/2023 at 16:10 Approved by: Orestes Shannon M.D. on 11/20/2023 at 16:19
[2023-11-20 09:57] LABS: Estimated Glomerular Filt Rate > 60 mL/min (>60)
== END ==
PROVIDERS: Radiology Diagnostic Radiology; PCP Nurse Practitioner Family; Referring Provider Nurse Practitioner Family; Visit Provider Nurse Practitioner Family
DX: K44.9 Diaphragmatic hernia without obstruction or gangrene (principal); K76.89 Other specified diseases of liver
CPT/HCPCS: 36415; 74160; 82565; Q9967